=== PATIENT | male | born 1960 | race Caucasian/White ===

== ENCOUNTER 2021-12-21 07:53 | Day surgery (SDC) | payer OTHER ==
[~2021-12-21] VITALS: Ht 177.8 cm; Wt 101.6 kg
[2021-12-21] MEDS ORDERED: MIDAZOLAM 5 MG/5 ML VIAL ONE (10:51)
[2021-12-21] MEDS ORDERED: LIDOCAINE 2% 100 MG/5 ML UJET TP ONE (10:51)
[2021-12-21] MEDS ORDERED: fentaNYL citrate 0.05 MG/ML VIAL ONE (10:51)
== END 2021-12-21 12:35 | disposition home or self-care (01) ==
LOC: MMU 07:53 → MDS 07:53
PROVIDERS: ATTEND Internal Medicine Gastroenterology
DX: Z12.11 Encounter for screening for malignant neoplasm of colon (principal); D12.5 Benign neoplasm of sigmoid colon; Z80.0 Family history of malignant neoplasm of digestive organs; E11.9 Type 2 diabetes mellitus without complications; I10 Essential (primary) hypertension; K57.30 Diverticulosis of large intestine without perforation or abscess without bleeding; Z79.899 Other long term (current) drug therapy; Z20.822 Contact with and (suspected) exposure to COVID-19
CPT/HCPCS: 45385; 87426; J2250; J3010